=== PATIENT | female | born 1990 | race Caucasian/White ===

== ENCOUNTER → 2016-05-29 | Outpatient (CLI) | payer OTHER ==
--- NOTE | 2016-05-29 09:18 | US ---
EXAMINATION TYPE: US abdomen complete DATE OF EXAM: 05/29/2016 7:25 AM COMPARISON: NONE CLINICAL HISTORY: epigastric pain, chronic diarrhea. EXAM MEASUREMENTS: Liver Length: 15.2 cm Gallbladder Wall: 0.2 cm CBD: 0.4 cm Spleen: 11.5 cm Right Kidney: 11.6 x 4.3 x 6.1 cm Left Kidney: 13.1 x 6.5 x 5.5 cm ANATOMY: TECHNOLOGIST IMPRESSION: Pancreas: visualized portions wnl Liver: Within normal limits Gallbladder: no stones seen Evidence for sonographic Rodas's sign: No CBD: Within normal limits Spleen: Within normal limits Right Kidney: No hydronephrosis or masses seen Left Kidney: No hydronephrosis or masses seen Upper IVC: Within normal limits Abd Aorta: Within normal limits The liver is homogenous. The intrahepatic portion of the IVC and proximal abdominal aorta are within normal limits. There is no evidence of cholelithiasis. Common bile duct is unremarkable. The visu alized portions of the pancreas are homogenous. The spleen is unremarkable. Kidneys are symmetric a nd free of hydronephrosis. No renal lesions are seen. IMPRESSION: Normal abdominal ultrasound. Normal Values: Liver Length: < 16cm wnl, 17-18cm upper limits, >18cm enlarged Spleen Length = < 13cm Renal Length = 9 - 12cm GB Wall: < 0.3cm CBD: < 0.6cm or < 1.0cm post cholecystectomy
== END | disposition home or self-care (01) ==
LOC: RADUSWWP 07:03
PROVIDERS: ATTEND Family Medicine
DX: R10.13 Epigastric pain (principal)
CPT/HCPCS: 76700

== ENCOUNTER 2016-12-15 05:56 | Emergency (ER) | payer OTHER ==
[2016-12-15] MEDS ORDERED: SODIUM CHLORIDE 0.9% 1,000 ML IV STA (06:25)
[2016-12-15] MEDS ORDERED: ONDANSETRON 4 MG/2 ML VIAL IVP STA (06:25)
[2016-12-15] MEDS ORDERED: MORPHINE SULFATE 4 MG/ML SYRINGE IV STA (06:25)
[2016-12-15] MEDS ORDERED: SODIUM CHLORIDE 0.9% 500 ML IV STA (06:25)
[2016-12-15] MEDS ORDERED: ESOMEPRAZOLE 20 MG in SODIUM CHLORIDE 0.9% 50 ML IVPB STA (06:28)
--- NOTE | 2016-12-15 06:50 | ED ---
Abdominal Pain HPI - General Source: patient Mode of arrival: ambulatory Limitations: no limitations <Flaquita Harris - Last Filed: 12/15/16 07:38> <Farhan Nichole - Last Filed: 12/15/16 09:07> - General Chief Complaint: Abdominal Pain Stated Complaint: Abd pain Time Seen by Provider: 12/15/16 06:19 - History of Present Illness Initial Comments: 26 years old female presented with epigastric pain for the last 3 days she been nauseous denies any vomiting she has no history of abdominal surgeries except tubal ligation. Denies any fever no chills denies any alcohol use or last few days denies any history of ulcers in the upper GI tract. No headaches no neck stiffness no chest pain does have abdominal pain no frequency urgency dysuria ( Flaquita Harris) - Related Data Previous Rx's Medication Instructions Recorded Nitrofurantoin Monohyd/M-Cryst 100 mg PO Q12HR #10 cap 12/15/16 [Macrobid] Allergies Allergy/AdvReac Type Severity Reaction Status Date / Time amoxicillin trihydrate Allergy Rash/Hives Verified 12/15/16 06:02 [From Augmentin] potassium clavulanate Allergy Rash/Hives Verified 12/15/16 06:02 [From Augmentin] Review of Systems ROS Other: All systems not noted in ROS Statement are negative. <Flaquita Harris - Last Filed: 12/15/16 07:38> ROS Other: All systems not noted in ROS Statement are negative. <Farhan Nichole - Last Filed: 12/15/16 09:07> ROS Statement: Those systems with pertinent positive or pertinent negative responses have been documented in the HPI. Past Medical History Past Medical History: No Reported History History of Any Multi-Drug Resistant Organisms: None Reported Past Surgical History: Ear Surgery, Tubal Ligation Past Anesthesia/Blood Transfusion Reactions: No Reported Reaction Past Psychological History: Anxiety Smoking Status: Current every day smoker Past Alcohol Use History: Rare Past Drug Use History: Marijuana - Past Family History Mother Family Medical History: No Reported History <Flaquita Harris - Last Filed: 12/15/16 07:38> General Exam Limitations: no limitations <Flaquita Harris - Last Filed: 12/15/16 07:38> General appearance: alert, in no apparent distress Head exam: Present: atraumatic, normocephalic, normal inspection Eye exam: Present: normal appearance, PERRL, EOMI. Absent: scleral icterus, conjunctival injection, periorbital swelling ENT exam: Present: normal exam, mucous membranes moist Neck exam: Present: normal inspection. Absent: tenderness, meningismus, lymphadenopathy Respiratory exam: Present: normal lung sounds bilaterally. Absent: respiratory distress, wheezes, rales, rhonchi, stridor Cardiovascular Exam: Present: regular rate, normal rhythm, normal heart sounds. Absent: systolic murmur, diastolic murmur, rubs, gallop, clicks GI/Abdominal exam: Present: soft, normal bowel sounds. Absent: distended, tenderness, guarding, rebound, rigid Extremities exam: Present: normal inspection, full ROM, normal capillary refill. Absent: tenderness, pedal edema, joint swelling, calf tenderness Back exam: Present: normal inspection Neurological exam: Present: alert, oriented X3, CN II-XII intact Psychiatric exam: Present: normal affect, normal mood Skin exam: Present: warm, dry, intact, normal color. Absent: rash <Farhan Nichole - Last Filed: 12/15/16 09:07> - General Exam Comments Initial Comments: General: The patient is awake and alert, in no distress, and does not appear acutely ill. Skin: Skin is warm and dry and no rashes or lesions are noted. Eye: Pupils are equal, round and reactive to light, extra-ocular movements are intact; there is normal conjunctiva bilaterally. Ears, nose, mouth and throat: There are moist mucous membranes and no oral lesions. Neck: The neck is supple, there is no tenderness or JVD. Cardiovascular: There is a regular rate and rhythm. No murmur, rub or gallop is appreciated. Respiratory: To auscultation bilateral, no wheezing no rhonchi no distress respiratory wolff noticed Gastrointestinal: Is tender in the epigastric area, also tender on the left upper quadrant area and the right lower quadrant area Back: There is no tenderness to palpation in the midline. There is no obvious deformity. Musculoskeletal: Normal ROM, no tenderness, There is no pedal edema. There is no calf tenderness or swelling. No cords were appreciated. Neurological: CN II-XII intact, Cranial nerves III through XII are intact. There are no obvious motor or sensory deficits. Coordination appears grossly intact. Speech is normal. Psychiatric: Cooperative, appropriate mood & affect, normal judgment. (Flaquita Harris) Course <Flaquita Harris - Last Filed: 12/15/16 07:38> <Farhan Nichole - Last Filed: 12/15/16 09:07> Vital Signs 12/15/16 12/15/16 05:57 07:26 Temperature 98.7 F 97.4 F L Pulse Rate 82 60 Respiratory 20 18 Rate Blood Pressure 122/65 93/58 O2 Sat by Pulse 99 100 Oximetry The patient was reassessed at 7:30, labs CBC, compressive metabolic panel all within normal range, patient is still quite tender in the epigastric area and the upper abdomen all go ahead and order a CAT scan of the abdomen and pelvis with the IV contrast (Flaquita Harris) Medical Decision Making - Lab Data Result diagrams: 12/15/16 06:30 12/15/16 06:30 <Flaquita Harris - Last Filed: 12/15/16 07:38> - Lab Data Result diagrams: 12/15/16 06:30 12/15/16 06:30 - Radiology Data Radiology results: report reviewed (X-ray KUB negative, CT abdomen and pelvis negative), image reviewed <Farhan Nichole - Last Filed: 12/15/16 09:07> - Medical Decision Making 25 futility of further urinary or bowel pain, likely UTI versus cervicitis, patient will be given antibiotics, discharged home follow-up with cultures ( Farhan Nichole) - Lab Data Lab Results 12/15/16 12/15/16 12/15/16 Range/Units 06:30 06:30 06:30 WBC 8.6 (3.8-10.6) k/uL RBC 4.63 (3.80-5.40) m/uL Hgb 14.7 (11.4-16.0) gm/dL Hct 41.8 (34.0-46.0) % MCV 90.3 (80.0-100.0) fL MCH 31.8 (25.0-35.0) pg MCHC 35.2 (31.0-37.0) g/dL RDW 13.3 (11.5-15.5) % Plt Count 258 (150-450) k/uL Neutrophils % 59 % Lymphocytes % 29 % Monocytes % 6 % Eosinophils % 2 % Basophils % 0 % Neutrophils # 5.1 (1.3-7.7) k/uL Lymphocytes # 2.5 (1.0-4.8) k/uL Monocytes # 0.5 (0-1.0) k/uL Eosinophils # 0.2 (0-0.7) k/uL Basophils # 0.0 (0-0.2) k/uL Sodium 141 (137-145) mmol/L Potassium 4.1 (3.5-5.1) mmol/L Chloride 108 H (98-107) mmol/L Carbon Dioxide 21 L (22-30) mmol/L Anion Gap 12 mmol/L BUN 16 (7-17) mg/dL Creatinine 0.60 (0.52-1.04) mg/dL Est GFR (MDRD) Af Amer >60 (>60 ml/min/1.73 sqM) Est GFR (MDRD) Non-Af >60 (>60 ml/min/1.73 sqM) Glucose 94 (74-99) mg/dL Calcium 9.3 (8.4-10.2) mg/dL Total Bilirubin 0.4 (0.2-1.3) mg/dL AST 24 (14-36) U/L ALT 34 (9-52) U/L Alkaline Phosphatase 63 (38-126) U/L C-Reactive Protein 5.3 (<10.0) mg/L Total Protein 6.7 (6.3-8.2) g/dL Albumin 4.3 (3.5-5.0) g/dL Amylase 38 (30-110) U/L Lipase 144 (23-300) U/L Urine Color Urine Appearance (Clear) Urine pH (5.0-8.0) Ur Specific Solen (1.001-1.035) Urine Protein (Negative) Urine Glucose (UA) (Negative) Urine Ketones (Negative) Urine Blood (Negative) Urine Nitrite (Negative) Urine Bilirubin (Negative) Urine Urobilinogen (<2.0) mg/dL Ur Leukocyte Esterase (Negative) Urine RBC (0-5) /hpf Urine WBC (0-5) /hpf Ur Squamous Epith Cells (0-4) /hpf Urine Bacteria (None) /hpf Urine Mucus (None) /hpf Urine HCG, Qual Not Detected (Not Detectd) 12/15/16 Range/Units 06:30 WBC (3.8-10.6) k/uL RBC (3.80-5.40) m/uL Hgb (11.4-16.0) gm/dL Hct (34.0-46.0) % MCV (80.0-100.0) fL MCH (25.0-35.0) pg MCHC (31.0-37.0) g/dL RDW (11.5-15.5) % Plt Count (150-450) k/uL Neutrophils % % Lymphocytes % % Monocytes % % Eosinophils % % Basophils % % Neutrophils # (1.3-7.7) k/uL Lymphocytes # (1.0-4.8) k/uL Monocytes # (0-1.0) k/uL Eosinophils # (0-0.7) k/uL Basophils # (0-0.2) k/uL Sodium (137-145) mmol/L Potassium (3.5-5.1) mmol/L Chloride (98-107) mmol/L Carbon Dioxide (22-30) mmol/L Anion Gap mmol/L BUN (7-17) mg/dL Creatinine (0.52-1.04) mg/dL Est GFR (MDRD) Af Amer (>60 ml/min/1.73 sqM) Est GFR (MDRD) Non-Af (>60 ml/min/1.73 sqM) Glucose (74-99) mg/dL Calcium (8.4-10.2) mg/dL Total Bilirubin (0.2-1.3) mg/dL AST (14-36) U/L ALT (9-52) U/L Alkaline Phosphatase (38-126) U/L C-Reactive Protein (<10.0) mg/L Total Protein (6.3-8.2) g/dL Albumin (3.5-5.0) g/dL Amylase (30-110) U/L Lipase (23-300) U/L Urine Color Yellow Urine Appearance Clear (Clear) Urine pH 5.5 (5.0-8.0) Ur Specific Solen 1.020 (1.001-1.035) Urine Protein Negative (Negative) Urine Glucose (UA) Negative (Negative) Urine Ketones Negative (Negative) Urine Blood Small H (Negative) Urine Nitrite Negative (Negative) Urine Bilirubin Negative (Negative) Urine Urobilinogen <2.0 (<2.0) mg/dL Ur Leukocyte Esterase Moderate H (Negative) Urine RBC 3 (0-5) /hpf Urine WBC 15 H (0-5) /hpf Ur Squamous Epith Cells 3 (0-4) /hpf Urine Bacteria Rare H (None) /hpf Urine Mucus Rare H (None) /hpf Urine HCG, Qual (Not Detectd) Disposition <Flaquita Harris - Last Filed: 12/15/16 07:38> <Farhan Nichole - Last Filed: 12/15/16 09:07> Clinical Impression: Abdominal pain, UTI (urinary tract infection) Disposition: HOME SELF-CARE Condition: Good Instructions: Abdominal Pain (ED), Urinary Tract Infection in Women (ED) Prescriptions: Nitrofurantoin Monohyd/M-Cryst [Macrobid] 100 mg PO Q12HR #10 cap Referrals: Gloria Trujillo MD [Primary Care Provider] - 1-2 days
[2016-12-15 06:51] LABS: Basophils % (A) 0 %; CH 31.9; CHCM 35.4; Eosinophils # (A) 0.2 k/uL (0-0.7); Eosinophils % (A) 2 %; HCT 41.8 % (34.0-46.0); HDW 2.52; HGB 14.7 gm/dL (11.4-16.0); Luc # (Auto) 0.22; Luc % (Auto) 3; Lymphocytes # (A) 2.5 k/uL (1.0-4.8); Lymphocytes % (A) 29 %; MCH 31.8 pg (25.0-35.0); MCHC 35.2 g/dL (31.0-37.0); MCV 90.3 fL (80.0-100.0); Mean Platelet Volume 7.3; Monocytes # (A) 0.5 k/uL (0-1.0); Monocytes % (A) 6 %; Neutrophils # (A) 5.1 k/uL (1.3-7.7); Neutrophils % (A) 59 %; RBC 4.63 m/uL (3.80-5.40); RDW 13.3 % (11.5-15.5); WBC 8.6 k/uL (3.8-10.6); WBC (Perox) 7.87
[2016-12-15 06:54] LABS: Appearance,Urine Clear (Clear); Bacteria,Urine Rare /hpf; Bilirubin,Urine Negative (Negative); Glucose,Urine (UA) Negative (Negative); Ketones,Urine Negative (Negative); Leukocyte Esterase,Urine Moderate (Negative); Mucus,Urine Rare /hpf; Nitrite,Urine Negative (Negative); PH, Urine 5.5 (5.0-8.0); Particle Count 5260; Protein,Urine Negative (Negative); RBC,Urine 3 /hpf (0-5); Squamous Epithelial Cell,Urine 3 /hpf (0-4); UA Billing (MACRO vs. MICRO) MICRO; Urobilinogen,Urine <2.0 mg/dL (<2.0); WBC,Urine 15 /hpf (0-5)
[2016-12-15 07:04] LABS: ALT 34 U/L (9-52); AST 24 U/L (14-36); Alkaline Phosphatase 63 U/L (38-126); Amylase 38 U/L (30-110); Anion Gap 12 mmol/L; Blood Urea Nitrogen 16 mg/dL (7-17); C Reactive Protein 5.3 mg/L (<10.0); Calcium 9.3 mg/dL (8.4-10.2); Carbon Dioxide 21 mmol/L (22-30); Chloride 108 mmol/L (98-107); Glucose 94 mg/dL (74-99); Non-African American GFR(MDRD) >60 (>60 ml/min/1.73 sqM); Potassium 4.1 mmol/L (3.5-5.1); Sodium 141 mmol/L (137-145); Total Bilirubin 0.4 mg/dL (0.2-1.3); Total Protein 6.7 g/dL (6.3-8.2)
[2016-12-15 07:29] VITALS: TEMP 97.4
[2016-12-15] MEDS ORDERED: RX INFO: IV CONTRAST WAS GIVEN 1 EACH MISC MISCELLANE PRN (07:31)
--- NOTE | 2016-12-15 07:32 | XR ---
EXAMINATION TYPE: XR KUB DATE OF EXAM: 12/15/2016 COMPARISON: NONE HISTORY: Pain TECHNIQUE: Single supine KUB image of the abdomen is obtained FINDINGS: Small bowel demonstrates no evidence for dilatation or air fluid levels. Gas and fecal material is seen in non-distended colon. No convincing evidence for pneumoperitoneum. No unusual calcifications. The lung bases are clear. The osseous structures are intact. Tubal ligation clips are in place. IMPRESSION: 1. Overall nonobstructive bowel gas pattern.
--- NOTE | 2016-12-15 08:40 | CT ---
EXAMINATION TYPE: CT abdomen pelvis w con DATE OF EXAM: 12/15/2016 COMPARISON: NONE HISTORY: umbilical pain CT DLP: 713.6 mGycm CONTRAST: CT scan of the abdomen and pelvis is performed without Oral Contrast and with IV Contrast, patient in jected with 100 mL of Omnipaque 300. FINDINGS: LUNG BASES-: No visible nodule. No infiltrate. LIVER/GB: No calcified gallstones. No space occupying hepatic lesion. Biliary tree is of normal ca liber. PANCREAS: No inflammation. No distinct mass. SPLEEN: No splenic enlargement. No lesion seen. ADRENALS: No nodule. No thickening. KIDNEYS/BLADDER: No hydronephrosis. No nephrolithiasis. No disctinct renal mass. Urinary bladder g rossly unremarkable. BOWEL: Normal appendix. Normal bowel caliber. No inflammation. GENITAL ORGANS: Uterus and ovaries are unremarkable. Tubal ligation clips are in place. LYMPH NODES: No greater than 1cm abdominal or pelvic lymph nodes are appreciated. AORTA: No significant abnormality. OSSEOUS STRUCTURES: No significant abnormality is seen. OTHER: No significant additional abnormality is seen. IMPRESSION: 1. No acute intra-abdominal process identified.
[2016-12-15] MEDS ORDERED: AZITHROMYCIN 500 MG TAB PO STA (09:06)
[2016-12-15] MEDS ORDERED: cefTRIAXone 250 MG VIAL IM STA (09:06)
[2016-12-15 09:25] VITALS: BP 97/62; PULSE 65; RESP 16
== END 2016-12-15 09:32 | disposition home or self-care (01) ==
LOC: EC 05:56
DX: N39.0 Urinary tract infection, site not specified (principal); R10.13 Epigastric pain; R10.12 Left upper quadrant pain; F17.200 Nicotine dependence, unspecified, uncomplicated; Z88.0 Allergy status to penicillin
CPT/HCPCS: 36415; 80053; 82150; 83690; 85025; 86140; 81001; 81025; 87491; 87591; 87086; 87077; 87186; 74000; 74177; 99284; 96372; 96365; 96375 ×2; 96361 ×2; J2270; J2405; J0696; Q9967

== ENCOUNTER 2017-09-17 11:19 | Emergency (ER) | payer OTHER ==
[2017-09-17] MEDS ORDERED: SODIUM CHLORIDE 0.9% 500 ML IV STA (11:51)
--- NOTE | 2017-09-17 12:03 | ED ---
Abdominal Pain HPI - General Chief Complaint: Abdominal Pain Stated Complaint: abdominal pain Time Seen by Provider: 09/17/17 11:49 Source: patient, RN notes reviewed Mode of arrival: ambulatory Limitations: no limitations - History of Present Illness Initial Comments: This is a 27-year-old female presents emergency Department with complaints of pelvic pain. Patient states his symptoms started yesterday while her kids were playing outside. She states is a sudden onset of sharp lower abdominal pelvic pain. She states she feels that she has to walk bent over because it makes it feel better. She states the pain is nonradiating. She states nothing else makes his symptoms better and she was advised take any Tylenol or Motrin to help. Patient states that she had a tubal ligation 2 years ago. Patient denies any vaginal bleeding or vaginal discharge. Last mental cycle was 2 months ago she states that she normally is regular. Patient states that she's had slight diarrhea no vomiting no constipation issues. Denies any rectal bleeding. Patient states she has no upper abdominal discomfort. Denies any flank pain. No history kidney stones. - Related Data Home Medications Medication Instructions Recorded Confirmed Multivitamins, Thera [Multivitamin 1 tab PO DAILY 09/17/17 09/17/17 (formulary)] Previous Rx's Medication Instructions Recorded Ibuprofen [Motrin] 600 mg PO Q8HR PRN #30 tab 09/17/17 Allergies Allergy/AdvReac Type Severity Reaction Status Date / Time amoxicillin trihydrate Allergy Rash/Hives Verified 09/17/17 12:09 [From Augmentin] potassium clavulanate Allergy Rash/Hives Verified 09/17/17 12:09 [From Augmentin] Review of Systems ROS Statement: Those systems with pertinent positive or pertinent negative responses have been documented in the HPI. ROS Other: All systems not noted in ROS Statement are negative. Past Medical History Past Medical History: No Reported History History of Any Multi-Drug Resistant Organisms: None Reported Past Surgical History: Ear Surgery, Tubal Ligation Past Anesthesia/Blood Transfusion Reactions: No Reported Reaction Past Psychological History: Anxiety Smoking Status: Current every day smoker Past Alcohol Use History: Rare Past Drug Use History: Marijuana - Past Family History Mother Family Medical History: No Reported History General Exam Limitations: no limitations General appearance: alert, in no apparent distress Head exam: Present: atraumatic, normocephalic, normal inspection Eye exam: Present: normal appearance, PERRL, EOMI. Absent: scleral icterus, conjunctival injection, periorbital swelling ENT exam: Present: normal exam, mucous membranes moist Respiratory exam: Present: normal lung sounds bilaterally. Absent: respiratory distress, wheezes, rales, rhonchi, stridor Cardiovascular Exam: Present: regular rate, normal rhythm, normal heart sounds. Absent: systolic murmur, diastolic murmur, rubs, gallop, clicks GI/Abdominal exam: Present: soft, tenderness (Lower abdominal, pelvis tenderness ), normal bowel sounds. Absent: distended, guarding, rebound, rigid Back exam: Absent: CVA tenderness (R), CVA tenderness (L) Skin exam: Present: warm, dry, intact, normal color. Absent: rash Course Vital Signs 09/17/17 09/17/17 11:44 13:33 Temperature 97.6 F 98.4 F Pulse Rate 82 72 Respiratory 20 18 Rate Blood Pressure 113/64 107/55 O2 Sat by Pulse 100 99 Oximetry Medical Decision Making - Medical Decision Making 27-year-old female presented for pelvic pain. Patient had lab work which was unremarkable all shown shows complex cyst Dr. Fuchs did discuss case with Dr. Sepulveda and advised her to follow-up in office for further treatment. Patient is not there is no concerns for ectopic at this time. - Lab Data Result diagrams: 09/17/17 12:20 09/17/17 12:20 Lab Results 09/17/17 09/17/17 09/17/17 Range/Units 12:15 12:15 12:20 WBC (3.8-10.6) k/uL RBC (3.80-5.40) m/uL Hgb (11.4-16.0) gm/dL Hct (34.0-46.0) % MCV (80.0-100.0) fL MCH (25.0-35.0) pg MCHC (31.0-37.0) g/dL RDW (11.5-15.5) % Plt Count (150-450) k/uL Neutrophils % % Lymphocytes % % Monocytes % % Eosinophils % % Basophils % % Neutrophils # (1.3-7.7) k/uL Lymphocytes # (1.0-4.8) k/uL Monocytes # (0-1.0) k/uL Eosinophils # (0-0.7) k/uL Basophils # (0-0.2) k/uL Sodium 139 (137-145) mmol/L Potassium 4.0 (3.5-5.1) mmol/L Chloride 102 (98-107) mmol/L Carbon Dioxide 24 (22-30) mmol/L Anion Gap 13 mmol/L BUN 17 (7-17) mg/dL Creatinine 0.52 (0.52-1.04) mg/dL Est GFR (CKD-EPI)AfAm >90 (>60 ml/min/1.73 sqM) Est GFR (CKD-EPI)NonAf >90 (>60 ml/min/1.73 sqM) Glucose 89 (74-99) mg/dL Calcium 9.7 (8.4-10.2) mg/dL Total Bilirubin 0.3 (0.2-1.3) mg/dL AST 17 (14-36) U/L ALT 25 (9-52) U/L Alkaline Phosphatase 59 (38-126) U/L Total Protein 6.9 (6.3-8.2) g/dL Albumin 4.5 (3.5-5.0) g/dL Amylase 49 (30-110) U/L Lipase 144 (23-300) U/L Urine Color Light Yellow Urine Appearance Clear (Clear) Urine pH 6.0 (5.0-8.0) Ur Specific Standard 1.017 (1.001-1.035) Urine Protein Negative (Negative) Urine Glucose (UA) Negative (Negative) Urine Ketones Negative (Negative) Urine Blood Trace H (Negative) Urine Nitrite Negative (Negative) Urine Bilirubin Negative (Negative) Urine Urobilinogen <2.0 (<2.0) mg/dL Ur Leukocyte Esterase Large H (Negative) Urine RBC 3 (0-5) /hpf Urine WBC 4 (0-5) /hpf Ur Squamous Epith Cells 2 (0-4) /hpf Urine Bacteria Rare H (None) /hpf Urine HCG, Qual Not Detected (Not Detectd) 09/17/17 Range/Units 12:20 WBC 9.9 (3.8-10.6) k/uL RBC 4.68 (3.80-5.40) m/uL Hgb 14.1 (11.4-16.0) gm/dL Hct 41.4 (34.0-46.0) % MCV 88.6 (80.0-100.0) fL MCH 30.2 (25.0-35.0) pg MCHC 34.0 (31.0-37.0) g/dL RDW 12.5 (11.5-15.5) % Plt Count 298 (150-450) k/uL Neutrophils % 70 % Lymphocytes % 23 % Monocytes % 4 % Eosinophils % 3 % Basophils % 0 % Neutrophils # 6.9 (1.3-7.7) k/uL Lymphocytes # 2.3 (1.0-4.8) k/uL Monocytes # 0.4 (0-1.0) k/uL Eosinophils # 0.2 (0-0.7) k/uL Basophils # 0.0 (0-0.2) k/uL Sodium (137-145) mmol/L Potassium (3.5-5.1) mmol/L Chloride (98-107) mmol/L Carbon Dioxide (22-30) mmol/L Anion Gap mmol/L BUN (7-17) mg/dL Creatinine (0.52-1.04) mg/dL Est GFR (CKD-EPI)AfAm (>60 ml/min/1.73 sqM) Est GFR (CKD-EPI)NonAf (>60 ml/min/1.73 sqM) Glucose (74-99) mg/dL Calcium (8.4-10.2) mg/dL Total Bilirubin (0.2-1.3) mg/dL AST (14-36) U/L ALT (9-52) U/L Alkaline Phosphatase (38-126) U/L Total Protein (6.3-8.2) g/dL Albumin (3.5-5.0) g/dL Amylase (30-110) U/L Lipase (23-300) U/L Urine Color Urine Appearance (Clear) Urine pH (5.0-8.0) Ur Specific Standard (1.001-1.035) Urine Protein (Negative) Urine Glucose (UA) (Negative) Urine Ketones (Negative) Urine Blood (Negative) Urine Nitrite (Negative) Urine Bilirubin (Negative) Urine Urobilinogen (<2.0) mg/dL Ur Leukocyte Esterase (Negative) Urine RBC (0-5) /hpf Urine WBC (0-5) /hpf Ur Squamous Epith Cells (0-4) /hpf Urine Bacteria (None) /hpf Urine HCG, Qual (Not Detectd) Disposition Clinical Impression: Pelvic pain, Complex ovarian cyst Disposition: HOME SELF-CARE Condition: Stable Instructions: Ovarian Cyst (ED) Additional Instructions: Please return to the Emergency Department if symptoms worsen or any other concerns. Prescriptions: Ibuprofen [Motrin] 600 mg PO Q8HR PRN #30 tab PRN Reason: Pain Is patient prescribed a controlled substance at d/c from ED?: No Referrals: Gloria Trujillo MD [Primary Care Provider] - 1-2 days Helder Farrar DO [Doctor of Osteopathic Medicine] - 1-2 days Time of Disposition: 14:20
[2017-09-17 12:34] LABS: Basophils % (A) 0 %; Eosinophils # (A) 0.2 k/uL (0-0.7); Eosinophils % (A) 3 %; HCT 41.4 % (34.0-46.0); HGB 14.1 gm/dL (11.4-16.0); Lymphocytes # (A) 2.3 k/uL (1.0-4.8); Lymphocytes % (A) 23 %; MCH 30.2 pg (25.0-35.0); MCV 88.6 fL (80.0-100.0); Mean Platelet Volume 6.7; Monocytes # (A) 0.4 k/uL (0-1.0); Monocytes % (A) 4 %; Neutrophils # (A) 6.9 k/uL (1.3-7.7); Neutrophils % (A) 70 %; Platelet Count 298 k/uL (150-450); RBC 4.68 m/uL (3.80-5.40); RDW 12.5 % (11.5-15.5); WBC 9.9 k/uL (3.8-10.6)
[2017-09-17 12:42] LABS: Appearance,Urine Clear (Clear); Bacteria,Urine Rare /hpf; Bilirubin,Urine Negative (Negative); Blood,Urine Trace (Negative); Color,Urine Light Yellow; Glucose,Urine (UA) Negative (Negative); Ketones,Urine Negative (Negative); Leukocyte Esterase,Urine Large (Negative); Nitrite,Urine Negative (Negative); Protein,Urine Negative (Negative); RBC,Urine 3 /hpf (0-5); Specific Gravity,Urine 1.017 (1.001-1.035); Squamous Epithelial Cell,Urine 2 /hpf (0-4); Urobilinogen,Urine <2.0 mg/dL (<2.0); WBC,Urine 4 /hpf (0-5)
[2017-09-17 12:47] LABS: ALT 25 U/L (9-52); AST 17 U/L (14-36); Albumin 4.5 g/dL (3.5-5.0); Alkaline Phosphatase 59 U/L (38-126); Amylase 49 U/L (30-110); Anion Gap 13 mmol/L; Blood Urea Nitrogen 17 mg/dL (7-17); Calcium 9.7 mg/dL (8.4-10.2); Carbon Dioxide 24 mmol/L (22-30); Chloride 102 mmol/L (98-107); Glucose 89 mg/dL (74-99); Lipase 144 U/L (23-300); Sodium 139 mmol/L (137-145); Total Bilirubin 0.3 mg/dL (0.2-1.3); Total Protein 6.9 g/dL (6.3-8.2)
[2017-09-17 13:35] VITALS: BP 107/55; PULSE 72; RESP 18; TEMP 98.4
[2017-09-17] MEDS ORDERED: KETOROLAC 30 MG/ML 1 ML VIAL IVP STA (13:37)
--- NOTE | 2017-09-17 13:41 | US ---
EXAMINATION TYPE: US transvaginal DATE OF EXAM: 09/17/2017 COMPARISON: 03/25/2012 CLINICAL HISTORY: Pain. EC patient with pelvic pain x 1 day; previous left ovarian cyst removed per vaishali byers's history update; tubal ligation; ; irregular menses TECHNIQUE: Transvaginal (TV). Date of LMP: 07/04/2017 EXAM MEASUREMENTS: Uterus: 9.3 x 5.4 x 4.4 cm Endometrial Stripe: 0.9 cm Right Ovary: 2.9 x 2.9 x 2.0 cm Left Ovary: 3.0 x 2.7 x 2.1 cm 1. Uterus: Anteverted; multiple small Nabothian Cysts are noted in cervix 2. Endometrium: unable to correlate thickness with June LMP; no masses seen 3. Right Ovary: multiple follicles with largest as complex cyst but nearly solid with peripheral rin g of color flow and size = 1.3 x 1.2 x 1.2cm 4. Left Ovary: multiple small follicles Spectral, color and waveform Doppler imaging shows good arterial and venous flow within the ovaries ; there is no evidence for ovarian torsion. 5. Bilateral Adnexa: wnl 6. Posterior cul-de-sac: free fluid noted in posterior Cul De Sac = 2.4 x 5.6 x 0.9 x 0.523 = 6.3ml (wnl as <10.0ml). IMPRESSION: 1. Complex right ovarian lesion measuring 1.3 cm does not meet the criteria of a simple cyst. Would i nclude hemorrhagic cyst and endometrioma within the differential diagnosis. Correlate with beta hCG a nd LMP to exclude possibility of ectopic 2. There is free fluid within the pelvis
== END 2017-09-17 14:32 | disposition home or self-care (01) ==
LOC: EC 11:19
DX: N83.201 Unspecified ovarian cyst, right side (principal); F17.200 Nicotine dependence, unspecified, uncomplicated; R19.7 Diarrhea, unspecified; Z98.51 Tubal ligation status; Z88.0 Allergy status to penicillin
CPT/HCPCS: 99284; 96374; 96361; 36415; 80053; 82150; 83690; 85025; 81001; 81025; 93975; 76830; J1885

== ENCOUNTER → 2017-10-09 | Outpatient (CLI) | payer OTHER ==
[2017-10-09 13:50] LABS: T4, Free (Free Thyroxine) 0.94 ng/dL (0.78-2.19)
== END ==
LOC: LABWHC1 12:32
PROVIDERS: ATTEND Obstetrics & Gynecology
DX: N93.8 Other specified abnormal uterine and vaginal bleeding (principal)
CPT/HCPCS: 36415; 82670; 83001; 83002; 84146; 84439; 84443

== ENCOUNTER → 2017-11-17 | Outpatient (CLI) | payer OTHER ==
--- NOTE | 2017-11-17 15:53 | US ---
EXAMINATION TYPE: US pelvic complete DATE OF EXAM: 11/17/2017 COMPARISON: NONE CLINICAL HISTORY: N83.20 prev ovarian cyst. lt pelvic pain with h/o cysts, on control now to he lp with cysts, tubal ligation, TECHNIQUE: TA Transabdominal sonographic images of the pelvis were acquired. Date of LMP: 10/22/2017 EXAM MEASUREMENTS: Uterus: 8.6 x 4.8 x 4.1cm Endometrial Stripe: 0.7cm Right Ovary: 3.0 x 2.5 x 2.3cm Left Ovary: 3.2 x 3.2 x 2.6cm 1. Uterus: Anteverted wnl 2. Endometrium: wnl 3. Right Ovary: wnl 4. Left Ovary: wnl. Follicles present. 5. Bilateral Adnexa: wnl 6. Posterior cul-de-sac: wnl IMPRESSION: 1. Normal pelvic ultrasound
== END | disposition home or self-care (01) ==
LOC: RADUSWWP 14:44
PROVIDERS: ATTEND Obstetrics & Gynecology
DX: N83.209 Unspecified ovarian cyst, unspecified side (principal)
CPT/HCPCS: 76856

== ENCOUNTER 2018-03-21 09:39 | Emergency (ER) | payer OTHER ==
[2018-03-21 09:58] VITALS: BP 116/69; PULSE 98; TEMP 99
--- NOTE | 2018-03-21 13:40 | ED ---
General Adult HPI - General Chief complaint: ENT Stated complaint: Lt ear pain Source: patient Mode of arrival: ambulatory Limitations: no limitations - History of Present Illness Initial comments: 27-year-old female patient presents to ED with loss of hearing in left ear. Patient was watching television at approximately 12 AM last night when she noticed that she could no longer hear out of her left ear. Patient has never experienced this before. Patient denies any other complaints. Systemic: Pt denies fatigue, myalgia, fever/chills, rash. Pt denies weakness, night sweats, weight loss. Neuro: Pt denies headache, visual disturbances, facial droop, paresthesias, syncope or pre-syncope. HEENT: Pt denies ocular discharge or irritation, otalgia, rhinorrhea, pharyngitis or notable lymphadenopathy. Cardiopulmonary: Pt denies chest pain, SOB, heart palpitations, dyspnea on exertion. Abdominal/GI: Pt denies abdominal pain, n/v/d. : Pt denies dysuria, burning w/ urination, frequency/urgency. Denies new onset urinary or bowel incontinence. MSK: Pt denies myalgia, loss of strength or function in extremities. - Related Data Home Medications Medication Instructions Recorded Confirmed Multivitamins, Thera [Multivitamin 1 tab PO DAILY 09/17/17 03/21/18 (formulary)] Previous Rx's Medication Instructions Recorded Ciprofloxacin HCl/Dexameth 5 drops BOTH EARS BID 7 Days #1 03/21/18 [Ciprodex Otic Suspension] bottle Allergies Allergy/AdvReac Type Severity Reaction Status Date / Time amoxicillin trihydrate Allergy Rash/Hives Verified 03/21/18 11:09 [From Augmentin] potassium clavulanate Allergy Rash/Hives Verified 03/21/18 11:09 [From Augmentin] Review of Systems ROS Statement: Those systems with pertinent positive or pertinent negative responses have been documented in the HPI. ROS Other: All systems not noted in ROS Statement are negative. Past Medical History Past Medical History: No Reported History History of Any Multi-Drug Resistant Organisms: None Reported Past Surgical History: Ear Surgery, Tubal Ligation Past Anesthesia/Blood Transfusion Reactions: No Reported Reaction Past Psychological History: No Psychological Hx Reported Smoking Status: Current some day smoker Past Alcohol Use History: Rare Past Drug Use History: Marijuana - Past Family History Mother Family Medical History: No Reported History General Exam - General Exam Comments Initial Comments: Constitutional: NAD, AOX3, Pt has pleasant affect. HEENT: NC/AT, trachea midline, neck supple, no lymphadenopathy. Posterior pharynx non erythematous, without exudates. Mucous membranes moist. Eyes PERRLA , EOM intact. There is no scleral icterus. No pallor noted. External ears appear normal, without discharge. Left tympanic membrane occluded with cerumen. Right tympanic membrane partially obscured with cerumen. Patient hearing decreased in left ear, within normal limits in right ear. Tympanic membrane nonerythematous, nonbulging post cerumen disimpaction bilaterally. Hearing within normal limits bilaterally post cerumen disimpaction. Cardiopulmonary: RRR, no murmurs, rubs or gallops, no JVD noted. Lungs CTAB in anterior and posterior ken[place]. No peripheral edema. Abdominal exam: Abdomen soft and non-distended. Abdomen non-tender to palpation in all 4 quadrants. Bowel sounds active in LLQ. No hepatosplenomegaly. Neuro: CN II-XII grossly intact. Limitations: no limitations Course Vital Signs 03/21/18 09:54 Temperature 99.0 F Pulse Rate 98 Respiratory 18 Rate Blood Pressure 116/69 O2 Sat by Pulse 99 Oximetry Medical Decision Making - Medical Decision Making 27-year-old female patient presented to ED with decreased hearing in left ear. Physical exam revealed left cerumen impaction. At time of presentation patient had decreased hearing in left ear. Patient's ears were irrigated bilaterally, after which patient's left hearing returned to baseline. An approximately 0.75 cm piece of cerumen was removed from left ear. Patient to be discharged with ciprodex. Patient to return to ED if pain recurs, if hearing is affected, or if any other complaints. Patient to follow up with primary care physician in one to 2 days. Disposition Clinical Impression: Impacted cerumen of left ear Disposition: HOME SELF-CARE Condition: Good Instructions: Cerumen Impaction (ED) Additional Instructions: Patient to adhere to previously discussed treatment plan and will take medication(s) as directed. Patient to follow up with PCP in 1-2 days. Patient to return to ED if symptoms if new symptoms develop. Prescriptions: Ciprofloxacin HCl/Dexameth [Ciprodex Otic Suspension] 5 drops BOTH EARS BID 7 Days #1 bottle Is patient prescribed a controlled substance at d/c from ED?: No Referrals: Silviano Jones Jr, [Primary Care Provider] - 1-2 days
[2018-03-21 13:54] VITALS: RESP 16
== END 2018-03-21 13:50 | disposition home or self-care (01) ==
LOC: EC 09:39
DX: H61.22 Impacted cerumen, left ear (principal); F17.200 Nicotine dependence, unspecified, uncomplicated; Z98.890 Other specified postprocedural states; Z88.0 Allergy status to penicillin
CPT/HCPCS: 69209; 99282

== ENCOUNTER → 2019-01-07 | Outpatient (CLI) | payer OTHER ==
--- NOTE | 2019-01-07 13:05 | US ---
EXAMINATION TYPE: US abdomen complete DATE OF EXAM: 01/07/2019 COMPARISON: CT & US CLINICAL HISTORY: R10 ABDOMINAL PAIN. Pt states generalized ABD pain EXAM MEASUREMENTS: Liver Length: 16.3 cm Gallbladder Wall: 0.2 cm CBD: 0.2 cm Spleen: 9.8 cm Right Kidney: 9.8 x 4.9 x 5.2 cm Left Kidney: 10.6 x 5.5 x 4.7 cm Pancreas: wnl, tail obscured by overlying bowel gas Liver: wnl Gallbladder: wnl Evidence for sonographic Rodas's sign: No CBD: wnl Spleen: wnl Right Kidney: No evidence of hydronephrosis, probable 5mm stone at mid Left Kidney: wnl Upper IVC: wnl Abd Aorta: wnl The liver is homogenous. The intrahepatic portion of the IVC and proximal abdominal aorta are within normal limits. There is no evidence of cholelithiasis. Common bile duct is unremarkable. The visu alized portions of the pancreas are homogenous. The spleen is unremarkable. Kidneys are symmetric a nd free of hydronephrosis. No renal lesions are seen. IMPRESSION: Probable 5 mm nonobstructing right renal calculus. Otherwise unremarkable abdominal ultrasound. No ev idence of cholelithiasis nor acute cholecystitis.
== END | disposition home or self-care (01) ==
LOC: RADUSWWP 10:16
PROVIDERS: ATTEND Family Medicine
DX: N30.01 Acute cystitis with hematuria (principal); R10.84 Generalized abdominal pain
CPT/HCPCS: 76700

== ENCOUNTER 2019-02-01 14:26 | Emergency (ER) | payer OTHER ==
[2019-02-01 14:29] VITALS: RESP 18; TEMP 98
[2019-02-01] MEDS ORDERED: SODIUM CHLORIDE 0.9% 1,000 ML IV STA (14:35)
--- NOTE | 2019-02-01 14:38 | ED ---
Dizziness HPI - General Chief Complaint: Dizziness Stated Complaint: Dizzy, Nausea Time Seen by Provider: 02/01/19 14:30 Source: patient, RN notes reviewed, old records reviewed Mode of arrival: wheelchair Limitations: no limitations - History of Present Illness Initial Comments: This is a 28-year-old female the ER for evaluation. This patient resents today for evaluation regards to not feeling herself. Patient states today while at work today. Patient states she drinks coffee in the morning thought that may be related to how she was feeling had some just overall weakness and not feeling well, fatigue the symptoms of been persistent. Patient denies drugs or alcohol but does occasionally smoke marijuana. Patient takes no medications has no m edical history. Denies any headache chest pain stress with her bowel pain recent waking or weight loss, no recent illnesses fine normal yesterday normal she woke up this morning and the symptoms hadn't fully progressed throughout the day. Patient having difficulty difficulty describing symptoms is remain asymptomatic be just related to weakness MD Complaint: dizziness, other (Weakness) -: hour(s) Timing: gradual onset History of Same: No History of Trauma: No Severity: mild Improves With: nothing Worsens With: movement, exertion Associated Symptoms: denies other symptoms - Related Data Home Medications Medication Instructions Recorded Confirmed Multivitamins, Thera [Multivitamin 1 tab PO DAILY 09/17/17 02/01/19 (formulary)] Allergies Allergy/AdvReac Type Severity Reaction Status Date / Time amoxicillin trihydrate Allergy Rash/Hives Verified 02/01/19 14:34 [From Augmentin] potassium clavulanate Allergy Rash/Hives Verified 02/01/19 14:34 [From Augmentin] Review of Systems ROS Statement: Those systems with pertinent positive or pertinent negative responses have been documented in the HPI. ROS Other: All systems not noted in ROS Statement are negative. Past Medical History Past Medical History: No Reported History History of Any Multi-Drug Resistant Organisms: None Reported Past Surgical History: Ear Surgery, Tubal Ligation Past Anesthesia/Blood Transfusion Reactions: No Reported Reaction Past Psychological History: No Psychological Hx Reported Smoking Status: Former smoker Past Alcohol Use History: None Reported Past Drug Use History: Marijuana - Past Family History Mother Family Medical History: No Reported History General Exam Limitations: no limitations General appearance: alert, in no apparent distress Head exam: Present: atraumatic, normocephalic, normal inspection Eye exam: Present: normal appearance, EOMI. Absent: scleral icterus, conjunctival injection, periorbital swelling ENT exam: Present: normal exam, mucous membranes moist Neck exam: Present: normal inspection. Absent: tenderness, meningismus, lymphadenopathy Respiratory exam: Present: normal lung sounds bilaterally. Absent: respiratory distress, wheezes, rales, rhonchi, stridor Cardiovascular Exam: Present: regular rate, normal rhythm, normal heart sounds. Absent: systolic murmur, diastolic murmur, rubs, gallop, clicks GI/Abdominal exam: Present: soft, normal bowel sounds. Absent: distended, te nderness, guarding, rebound, rigid Extremities exam: Present: normal inspection, full ROM, normal capillary refill. Absent: tenderness, pedal edema, joint swelling, calf tenderness Back exam: Present: normal inspection Neurological exam: Present: alert, oriented X3, CN II-XII intact Psychiatric exam: Present: normal affect, normal mood Skin exam: Present: warm, dry, intact, normal color. Absent: rash Course Vital Signs 02/01/19 02/01/19 14:27 14:40 Temperature 98.0 F Pulse Rate 78 72 Respiratory 18 18 Rate Blood Pressure 135/86 118/74 O2 Sat by Pulse 99 98 Oximetry - Reevaluation(s) Reevaluation #1: 02/01/19 14:38 Medical records reviewed Reevaluation #2: 02/01/19 15:50 Patient feeling better, resting comfortably in bed here Medical Decision Making - Medical Decision Making Why 8 female DEL with nonspecific dizziness labwork is normal. I with hydration, patient was resting, placed sleeping throughout ER stay, patient is having increasing fatigue, patient encouraged increased rest and fluids. Patient can be discharged home - Lab Data Result diagrams: 02/01/19 14:56 02/01/19 14:56 Lab Results 02/01/19 02/01/19 02/01/19 Range/Units 14:56 14:56 Unknown WBC 11.4 H (3.8-10.6) k/uL RBC 4.74 (3.80-5.40) m/uL Hgb 14.5 (11.4-16.0) gm/dL Hct 42.2 (34.0-46.0) % MCV 89.1 (80.0-100.0) fL MCH 30.7 (25.0-35.0) pg MCHC 34.5 (31.0-37.0) g/dL RDW 12.4 (11.5-15.5) % Plt Count 303 (150-450) k/uL Neutrophils % 79 % Lymphocytes % 14 % Monocytes % 4 % Eosinophils % 1 % Basophils % 1 % Neutrophils # 9.0 H (1.3-7.7) k/uL Lymphocytes # 1.6 (1.0-4.8) k/uL Monocytes # 0.5 (0-1.0) k/uL Eosinophils # 0.2 (0-0.7) k/uL Basophils # 0.1 (0-0.2) k/uL Sodium 141 (137-145) mmol/L Potassium 3.9 (3.5-5.1) mmol/L Chloride 104 (98-107) mmol/L Carbon Dioxide 28 (22-30) mmol/L Anion Gap 9 mmol/L BUN 13 (7-17) mg/dL Creatinine 0.61 (0.52-1.04) mg/dL Est GFR (CKD-EPI)AfAm >90 (>60 ml/min/1.73 sqM) Est GFR (CKD-EPI)NonAf >90 (>60 ml/min/1.73 sqM) Glucose 109 H (74-99) mg/dL Calcium 9.9 (8.4-10.2) mg/dL Phosphorus 3.4 (2.5-4.5) mg/dL Magnesium 1.9 (1.6-2.3) mg/dL Total Bilirubin 0.3 (0.2-1.3) mg/dL AST 25 (14-36) U/L ALT 27 (9-52) U/L Alkaline Phosphatase 54 (38-126) U/L Creatine Kinase 205 H (30-135) U/L Total Protein 7.7 (6.3-8.2) g/dL Albumin 4.8 (3.5-5.0) g/dL TSH 2.760 (0.465-4.680) mIU/L Urine Color Colorless Urine Appearance Clear (Clear) Urine pH 6.5 (5.0-8.0) Ur Specific [place] 1.001 (1.001-1.035) Urine Protein Negative (Negative) Urine Glucose (UA) Negative (Negative) Urine Ketones Negative (Negative) Urine Blood Negative (Negative) Urine Nitrite Negative (Negative) Urine Bilirubin Negative (Negative) Urine Urobilinogen <2.0 (<2.0) mg/dL Ur Leukocyte Esterase Negative (Negative) Disposition Clinical Impression: Weakness, Dizziness Disposition: HOME SELF-CARE Condition: Good Instructions (If sedation given, give patient instructions): Dizziness (ED) Is patient prescribed a controlled substance at d/c from ED?: No Referrals: Malachi Villasenor MD [Primary Care Provider] - 1-2 days
[2019-02-01 14:48] VITALS: BP 118/74; PULSE 72
[2019-02-01 15:10] LABS: Appearance,Urine Clear (Clear); Bilirubin,Urine Negative (Negative); Blood,Urine Negative (Negative); Color,Urine Colorless; Glucose,Urine (UA) Negative (Negative); Ketones,Urine Negative (Negative); Leukocyte Esterase,Urine Negative (Negative); Nitrite,Urine Negative (Negative); PH, Urine 6.5 (5.0-8.0); Protein,Urine Negative (Negative); Specific Gravity,Urine 1.001 (1.001-1.035); Urobilinogen,Urine <2.0 mg/dL (<2.0)
[2019-02-01 15:11] LABS: Basophils # (A) 0.1 k/uL (0-0.2); Basophils % (A) 1 %; Eosinophils # (A) 0.2 k/uL (0-0.7); Eosinophils % (A) 1 %; HCT 42.2 % (34.0-46.0); HGB 14.5 gm/dL (11.4-16.0); Lymphocytes # (A) 1.6 k/uL (1.0-4.8); Lymphocytes % (A) 14 %; MCH 30.7 pg (25.0-35.0); MCHC 34.5 g/dL (31.0-37.0); MCV 89.1 fL (80.0-100.0); Mean Platelet Volume 6.3; Monocytes # (A) 0.5 k/uL (0-1.0); Monocytes % (A) 4 %; Neutrophils % (A) 79 %; Platelet Count 303 k/uL (150-450); RBC 4.74 m/uL (3.80-5.40); RDW 12.4 % (11.5-15.5); WBC 11.4 k/uL (3.8-10.6)
[2019-02-01 15:20] LABS: ALT 27 U/L (9-52); AST 25 U/L (14-36); African American GFR (CKD) >90 (>60 ml/min/1.73 sqM); Albumin 4.8 g/dL (3.5-5.0); Alkaline Phosphatase 54 U/L (38-126); Anion Gap 9 mmol/L; Blood Urea Nitrogen 13 mg/dL (7-17); Calcium 9.9 mg/dL (8.4-10.2); Carbon Dioxide 28 mmol/L (22-30); Chloride 104 mmol/L (98-107); Creatine Kinase 205 U/L (30-135); Glucose 109 mg/dL (74-99); Magnesium 1.9 mg/dL (1.6-2.3); Phosphorus 3.4 mg/dL (2.5-4.5); Potassium 3.9 mmol/L (3.5-5.1); Sodium 141 mmol/L (137-145); Total Bilirubin 0.3 mg/dL (0.2-1.3); Total Protein 7.7 g/dL (6.3-8.2)
== END 2019-02-01 16:12 | disposition home or self-care (01) ==
LOC: EC 14:26
DX: R53.1 Weakness (principal); R42 Dizziness and giddiness; R11.0 Nausea; Z88.0 Allergy status to penicillin; Z88.1 Allergy status to other antibiotic agents; Z87.891 Personal history of nicotine dependence
CPT/HCPCS: 36415; 80053; 81003; 82550; 83735; 84100; 84443; 85025; 96360; 99284

== ENCOUNTER 2020-06-18 18:59 | Emergency (ER) | payer OTHER ==
[2020-06-18 19:07] VITALS: RESP 18; TEMP 98.1
[2020-06-18] MEDS ORDERED: FAMOTIDINE 20 MG/2 ML VIAL IV STA (19:21)
[2020-06-18] MEDS ORDERED: KETOROLAC 15 MG/ML 1 ML VIAL IVP STA (19:21)
--- NOTE | 2020-06-18 19:26 | ED ---
Chest Pain HPI - General Chief Complaint: Chest Pain Stated Complaint: Chest pain Time Seen by Provider: 06/18/20 19:09 Source: patient Mode of arrival: wheelchair Limitations: no limitations - History of Present Illness Initial Comments: This is a 29-year-old female with no past medical history presents or urgency department for chest pain. She states that it's been present for the last 2 days. She states that she has constant chest pressure however occasionally will get worsening burning and sharp chest pains associated with it. She states it is nonradiating and central her chest. She states that deep breathing seems to make it worse however she does not feel short of breath. She also states that when she rolled over onto her left side and brings her arm across her chest that seems to make it worse. She denies any strenuous activity recently. No trauma. No cough. She admits to being started on amoxicillin recently for an infected tooth. She's also been taking Motrin frequently over the last couple of days for the pain in her tooth. She states it does not get worse with eating. She has no nausea or vomiting. Tonight she had an episode where she got very lightheaded, hot, and sweaty and felt like she was going to pass out. This concerned her so she decided come emergency department for evaluation. She denies any history of PE or DVT. No lower extremity swelling or pain. No other complaints. - Related Data Home Medications Medication Instructions Recorded Confirmed Amoxicillin 500 mg PO Q8H 06/18/20 06/18/20 Ibuprofen [Motrin] 800 mg PO Q8H PRN 06/18/20 06/18/20 Allergies Allergy/AdvReac Type Severity Reaction Status Date / Time amoxicillin trihydrate Allergy Rash/Hives Verified 06/18/20 20:06 [From Augmentin] potassium clavulanate Allergy Rash/Hives Verified 06/18/20 20:06 [From Augmentin] Review of Systems ROS Statement: Those systems with pertinent positive or pertinent negative responses have been documented in the HPI. ROS Other: All systems not noted in ROS Statement are negative. EKG Findings - EKG Comments: EKG Findings:: EKG showing sinus tachycardia with a rate of 102. There are no abnormal ST segment changes or T-wave inversions. QTC is 456. Other intervals are normal. No ectopy. Past Medical History Past Medical History: No Reported History History of Any Multi-Drug Resistant Organisms: None Reported Past Surgical History: Ear Surgery, Tubal Ligation Past Anesthesia/Blood Transfusion Reactions: No Reported Reaction Past Psychological History: Anxiety Smoking Status: Never smoker Past Alcohol Use History: Rare Past Drug Use History: Marijuana - Past Family History Mother Family Medical History: No Reported History General Exam - General Exam Comments Initial Comments: Constitutional: Awake alert Appears comfortable Head: Normocephalic atraumatic ENT: Fractured 2nd molar on the upper left. No surrounding erythema or tenderness. NO abscess seen. PHarynx appears normal Eyes: no conjunctival injection No scleral icterus EOMI Neck: No JVD Supple Heart: Regular rate rhythm normal S1-S2 no murmurs, 2+ radial/DP pulses b/l Lungs: Clear to auscultation bilaterally No wheezing No rales Abdomen: Soft nondistended nontender Extremities: Non edematous DP pulses intact Radial pulses intact, no tenderness Neuro: A&Ox3 No focal neurologic deficits Psych: Appropriate mood and affect Limitations: no limitations Course Vital Signs 06/18/20 06/18/20 19:03 20:20 Temperature 98.1 F Pulse Rate 98 73 Respiratory 18 18 Rate Blood Pressure 123/80 108/66 O2 Sat by Pulse 100 98 Oximetry Chest Pain MDM - MDM Is a 29-year-old female who presents emergency department for chest pain. The chest pain was reproducible on exam. Worse with certain arm movements and breathing. Patient had stable vital signs on arrival. EKG was done which was unremarkable. Blood work was obtained which showed a normal troponin and negative d-dimer. Chest x-ray was unremarkable. The patient felt improved after Toradol and Pepcid. I suspect that the patient is likely suffering from chest wall discomfort however since she has been taking multiple doses of Motrin over the last 48 hours he could be some mild esophagitis. I advised her to switch to Tylenol for pain and discomfort. She should continue her amoxicillin told Triston follow-up with her dentist for her tooth. Monitor her chest discomfort and if it seems to be worsening or changing she should return emergency Department for further evaluation. Otherwise follow-up closely with primary doctor. All questions were answered. Disposition Clinical Impression: Chest pain Disposition: HOME SELF-CARE Condition: Stable Instructions (If sedation given, give patient instructions): Chest Pain (ED) Is patient prescribed a controlled substance at d/c from ED?: No Referrals: Silviano Jones Jr, DO [Primary Care Provider] - 1-2 days
[2020-06-18 19:42] LABS: Basophils % (A) 1 %; Eosinophils # (A) 0.2 k/uL (0-0.7); Eosinophils % (A) 2 %; HGB 15.5 gm/dL (11.4-16.0); Lymphocytes # (A) 2.3 k/uL (1.0-4.8); Lymphocytes % (A) 28 %; MCH 31.6 pg (25.0-35.0); MCHC 35.2 g/dL (31.0-37.0); MCV 89.9 fL (80.0-100.0); Mean Platelet Volume 6.3; Monocytes # (A) 0.4 k/uL (0-1.0); Monocytes % (A) 5 %; Neutrophils # (A) 5.4 k/uL (1.3-7.7); Neutrophils % (A) 64 %; Platelet Count 314 k/uL (150-450); RBC 4.89 m/uL (3.80-5.40); RDW 12.1 % (11.5-15.5); WBC 8.5 k/uL (3.8-10.6)
[2020-06-18 19:58] LABS: ALT 17 U/L (4-34); AST 22 U/L (14-36); African American GFR (CKD) >90 (>60 ml/min/1.73 sqM); Albumin 4.9 g/dL (3.5-5.0); Alkaline Phosphatase 66 U/L (38-126); Anion Gap 8 mmol/L; Blood Urea Nitrogen 13 mg/dL (7-17); Calcium 9.8 mg/dL (8.4-10.2); Carbon Dioxide 28 mmol/L (22-30); Chloride 104 mmol/L (98-107); Glucose 107 mg/dL (74-99); Lipase 117 U/L (23-300); Non-African American GFR(CKD) >90 (>60 ml/min/1.73 sqM); Potassium 3.9 mmol/L (3.5-5.1); Sodium 140 mmol/L (137-145); Total Bilirubin 0.6 mg/dL (0.2-1.3); Total Protein 8.1 g/dL (6.3-8.2)
--- NOTE | 2020-06-18 20:09 | XR ---
EXAMINATION TYPE: XR chest 2V DATE OF EXAM: 06/18/2020 COMPARISON: 05/20/2016 HISTORY: Pain TECHNIQUE: 2 views FINDINGS: Heart and mediastinum are normal. Lungs are clear. Diaphragm is normal. Bony thorax appears normal. IMPRESSION: Normal chest.
[2020-06-18 20:23] VITALS: BP 108/66; PULSE 73
== END 2020-06-18 20:40 | disposition home or self-care (01) ==
LOC: EC 18:59
DX: R07.1 Chest pain on breathing (principal); Z88.1 Allergy status to other antibiotic agents; R42 Dizziness and giddiness; R61 Generalized hyperhidrosis
CPT/HCPCS: 36415; 93005; 85379; 80053; 83690; 84484; 85025; 81025; 71046; 99284; 96374; 96375; J1885

== ENCOUNTER → 2024-06-16 | Outpatient (CLI) | payer OTHER ==
--- NOTE | 2024-06-16 09:40 | XR ---
EXAMINATION TYPE: XR shoulder complete LT DATE OF EXAM: 06/16/2024 9:35 AM COMPARISON: None. CLINICAL INDICATION: Female, 33 years old with history of M25.512 PAIN IN LEFT SHOULDER, pain TECHNIQUE: Three views of the left shoulder are obtained. FINDINGS: There is no acute fracture/dislocation evident in the left shoulder. The acromioclavicul ar and glenohumeral joint spaces appear within normal limits. Distal acromion morphology is unremark able. The visualized ribs are intact and unremarkable. IMPRESSION: Unremarkable study. [facility], , 06/16/2024 9:38 AM
== END | disposition home or self-care (01) ==
LOC: RADXRMAIN 09:24
PROVIDERS: ATTEND Family Medicine
DX: M25.512 Pain in left shoulder (principal)

== ENCOUNTER → 2024-08-24 | Outpatient (CLI) | payer OTHER ==
--- NOTE | 2024-08-24 08:32 | US ---
EXAMINATION TYPE: US gallbladder DATE OF EXAM: 08/24/2024 COMPARISON: NONE CLINICAL INDICATION: Female, 33 years old with history of R10.811 RIGHT UPPER QUADRANT ABDOMINAL TEND ERNESS; RUQ pain x 6 months TECHNIQUE: Grayscale and color Doppler imaging of the right upper quadrant was performed. FINDINGS: EXAM MEASUREMENTS: Liver Length: 15.6 cm Gallbladder Wall: 0.2 cm CBD: 0.6 cm Right Kidney: 9.6 x 4.6 x 5.4 cm Pancreas: wnl Liver: wnl Gallbladder: wnl Evidence for sonographic Rodas's sign: no CBD: wnl Right Kidney: wnl IMPRESSION: No acute abdominal process. [facility], , 08/24/2024 8:30 AM
== END | disposition home or self-care (01) ==
LOC: RADUSWWP 07:37
PROVIDERS: ATTEND Family Medicine
DX: R10.811 Right upper quadrant abdominal tenderness (principal)
CPT/HCPCS: 76705